=== PATIENT | male | born 1960 ===

== ENCOUNTER 2025-02-12 13:58 | Outpatient (CLI) | payer MEDICARE, BC ==
--- NOTE | 2025-02-13 08:31 | RADIOLOGY REPORT ---
CLINICAL INDICATION: PAIN IN RIGHT FOOT AND PAIN IN LEFT FOOT COMPARISON: None TECHNIQUE: Multiplanar, multisequence MRI of the right foot was performed without intravenous contras t. Contrast: None. INTERPRETATION: Bones: No evidence of acute fracture. There is no marrow replacing lesion. Soft tissues: The Lisfranc ligament is intact. The medial and lateral collateral ligaments are intac t at the metatarsophalangeal joints. The flexor and extensor tendons are intact. There is no planta r plate tear. There is no soft tissue mass or fluid collection. The intrinsic muscles of the foot a re unremarkable. IMPRESSION: 1. Unremarkable MRI of the right foot without contrast.
--- NOTE | 2025-02-13 10:27 | RADIOLOGY REPORT ---
CLINICAL INDICATION: PAIN IN RIGHT FOOT AND LEFT FOOT COMPARISON: None TECHNIQUE: Multiplanar, multisequence MRI of the left foot was performed without intravenous contrast . Contrast: None. INTERPRETATION: Bones: No evidence of acute fracture. There is no marrow replacing lesion. Soft tissues: The Lisfranc ligament is intact. The medial and lateral collateral ligaments are intac t at the metatarsophalangeal joints. The flexor and extensor tendons are intact. There is no planta r plate tear. There is no soft tissue mass or fluid collection.. The intrinsic muscles of the foot are unremarkable. IMPRESSION: 1. Unremarkable MRI of the left foot without contrast.
== END 2025-02-12 23:59 | disposition home or self-care (01) ==
LOC: MRI02 13:58
PROVIDERS: ATTEND Podiatrist Foot & Ankle Surgery
DX: M79.672 Pain in left foot (principal); M79.671 Pain in right foot
CPT/HCPCS: 73718